=== PATIENT | male | born 1940 | race Caucasian/White ===

== ENCOUNTER 2018-05-13 06:36 | Emergency (ER) | payer MEDICARE, OTHER ==
[~2018-05-13] VITALS: Ht 177.8 cm; Wt 82.7 kg
[2018-05-13] MEDS ORDERED: PRED20TA PO (07:25)
[2018-05-13] MEDS ORDERED: predniSONE 20 mg tablet PO ONE (07:25)
[2018-05-13 07:42] VITALS: BP 148/76
== END 2018-05-13 07:43 | disposition home or self-care (01) ==
LOC: ER 06:36
DX: T78.49XA Other allergy, initial encounter (principal); L53.8 Other specified erythematous conditions; H05.229 Edema of unspecified orbit; E11.9 Type 2 diabetes mellitus without complications; Z88.1 Allergy status to other antibiotic agents; Z88.6 Allergy status to analgesic agent; Z79.899 Other long term (current) drug therapy; X58.XXXA Exposure to other specified factors, initial encounter
CPT/HCPCS: 99283; J7512